=== PATIENT | male | born 1970 | race Native Hawaiian/Other Pacific Islander ===

== ENCOUNTER 2018-08-13 06:27 | Day surgery (SDC) | payer OTHER ==
[2018-08-09 16:36] VITALS: BMI 28.1
[2018-08-13] MEDS ORDERED: Propofol 10 mg/ml Inj (20 ML) ONE (07:58)
[2018-08-13] MEDS ORDERED: Sodium Chloride 0.9% 1,000 ML IV SCH (08:45)
[2018-08-13 12:02] VITALS: BP 106/73; PULSE 70; RESP 18; TEMP 97.6; O2SAT 97
== END 2018-08-13 10:36 | disposition home or self-care (01) ==
LOC: ENDO 06:27
PROVIDERS: ATTEND Internal Medicine Gastroenterology
DX: Z12.11 Encounter for screening for malignant neoplasm of colon (principal); K64.1 Second degree hemorrhoids; K63.5 Polyp of colon; E78.5 Hyperlipidemia, unspecified
CPT/HCPCS: 45385 ×2; 88305; J2704; J7030; J7040